=== PATIENT | male | born 1950 | race Native Hawaiian/Other Pacific Islander ===

== ENCOUNTER 2022-04-10 19:29 | Emergency (ER) | payer OTHER ==
[~2022-04-10] VITALS: Ht 180.3 cm; Wt 63.5 kg
[2022-04-10 20:29] LABS: PLATELET COUNT 271 K/uL (142-355)
[2022-04-10 20:38] LABS: POTASSIUM 2.9 mmol/L (3.6-5.2)
[2022-04-10 20:48] LABS: PARTIAL THROMBOPLASTIN TIME 24.5 SECONDS (24.5-33.6)
[2022-04-10 22:58] VITALS: BP 138/92; TEMP 98.3
== END 2022-04-10 22:58 | disposition short-term general hospital (02) ==
LOC: ED 19:29
PROVIDERS: Hospitalist
DX: I21.4 Non-ST elevation (NSTEMI) myocardial infarction (principal); I49.3 Ventricular premature depolarization; I70.8 Atherosclerosis of other arteries; I10 Essential (primary) hypertension; Z11.52 Encounter for screening for COVID-19; F17.210 Nicotine dependence, cigarettes, uncomplicated; M79.671 Pain in right foot
CPT/HCPCS: 36415; 80053; 82550; 83880; 84484; 85027; 85610; 85730; 87635; 93005; 96365; 99285; J1644; U0003